=== PATIENT | female | born 1945 | race Caucasian/White ===

== ENCOUNTER 2018-12-02 09:57 | Observation (INO) | payer MEDICARE, BC ==
[2018-12-02] VITALS (22 sets, daily range): BP systolic 123–168; BP diastolic 55–79; PULSE 59–82; RESP 12–20; Ht 165.1 cm; Wt 61.2 kg
[~2018-12-02] VITALS: Ht 165.1 cm; Wt 61.2 kg
[~2018-12-02 09:57] MED LIST: CALC1TAB79 PO; CRES5 PO; ESOM40CA PO; HYDR200T39 PO; MULT-853 PO; OMEG1CAP35 PO; PREM3 PO; RANI150T5 PO; VIT1TABL46 PO; ZIAC5 PO
[2018-12-02] MEDS ORDERED: BUPIVACAINE 0.25%/EPI (SDV) 10 ML INJ ONE (12:05)
[2018-12-02] MEDS ORDERED: CA CHLORIDE (GM) 10% 10 ML INJ ONE (12:05)
[2018-12-02] MEDS ORDERED: THROMBIN 5000 UNIT (RECOTHROM) VIAL ONE (12:05)
[2018-12-02] MEDS ORDERED: POLYMYXIN/BACITRACIN 1L IRRIG ONE (12:05)
[2018-12-02] MEDS ORDERED: HEPARIN 1000 UNITS/ML 10 ML INJ ONE (12:05)
[2018-12-02] MEDS: CEFAZOLIN 1 GM/50 ML (PMX) 50 ML IVPB SCH ×2 (12:35→20:19)
[2018-12-02] MEDS ORDERED: MIDAZOLAM 1 MG/ML 2 ML INJ ONE (12:41)
[2018-12-02] MEDS ORDERED: BISACODYL 10 MG SUPP PR PRN (13:00)
[2018-12-02] MEDS ORDERED: AL HYDROX/MG HYDROX/SIMETH 30 ML CUP PO PRN (13:00)
[2018-12-02] MEDS ORDERED: ACETAMINOPHEN 325 MG TAB PO PRN (13:00)
[2018-12-02] MEDS ORDERED: NALOXONE (0.4 MG/ML) INJ IV PRN (13:00)
[2018-12-02] MEDS ORDERED: HYDROmorphONE 0.5 MG/0.5 ML SYG IV PRN (13:00)
[2018-12-02] MEDS ORDERED: HYDROCODONE/APAP (5/325) TAB PO PRN (13:00)
[2018-12-02] MEDS ORDERED: DIPHENHYDRAMINE 50 MG INJ IV PRN ×2 (13:00→15:00)
[2018-12-02] MEDS ORDERED: CYCLOBENZAPRINE 10 MG TAB PO PRN (13:00)
[2018-12-02] MEDS ORDERED: DIPHENHYDRAMINE 25 MG CAP PO PRN (13:00)
[2018-12-02] MEDS ORDERED: CEPASTAT LOZENGE MT PRN (13:00)
[2018-12-02] MEDS ORDERED: CEFAZOLIN 1 GM INJ ONE (14:08)
[2018-12-02] MEDS ORDERED: ROCURONIUM 50 MG INJ ONE (14:08)
[2018-12-02] MEDS ORDERED: NEOSTIGMINE 3 MG/3 ML SYRINGE ONE (14:08)
[2018-12-02] MEDS ORDERED: ETOMIDATE 20 MG INJ ONE (14:08)
[2018-12-02] MEDS ORDERED: GLYCOPYRROLATE 0.4 MG INJ ONE (14:08)
[2018-12-02] MEDS ORDERED: LIDOCAINE 2% (SDV) 5 ML INJ ONE (14:08)
[2018-12-02] MEDS ORDERED: ONDANSETRON 4 MG INJ ONE (14:10)
[2018-12-02] MEDS ORDERED: MEPERIDINE 25 MG INJ IV PRN (15:00)
[2018-12-02] MEDS ORDERED: hydrALAzine 20 MG INJ IV PRN ×2 (15:00→19:30)
[2018-12-02] MEDS ORDERED: METOCLOPRAMIDE 10 MG INJ IV PRN (15:00)
[2018-12-02] MEDS ORDERED: LABETALOL HCL 20MG INJ IV PRN (15:00)
[2018-12-02] MEDS ORDERED: HYDROmorphONE 1 MG/5 ML IV SYRINGE IV PRN ×2 (15:00)
[2018-12-02] MEDS ORDERED: FENTAnyl 50 MCG/ML VIAL IV PRN (15:00)
[2018-12-02] MEDS ORDERED: ONDANSETRON 4 MG INJ IV PRN (15:00)
[2018-12-02] MEDS: D5W-0.45 NACL + KCL 20 MEQ 1,000 ML IV SCH (17:11)
[2018-12-02] MEDS: ONDANSETRON 4 MG INJ IV PRN (19:08)
[2018-12-02] MEDS: HYDROCODONE/APAP (5/325) TAB PO PRN (19:09)
[2018-12-02] MEDS: DOCUSATE SODIUM 100 MG CAP PO SCH (20:18)
[2018-12-02] MEDS: HYDROXYCHLOROQUINE 200 MG TAB PO SCH (20:18)
[2018-12-02] MEDS ORDERED: RANITIDINE 150 MG TAB PO SCH (21:00)
[2018-12-03 01:00] VITALS: BP 142/68; PULSE 76; RESP 18
[2018-12-03] MEDS: D5W-0.45 NACL + KCL 20 MEQ 1,000 ML IV SCH ×2 (02:30→08:25)
[2018-12-03] MEDS: CEFAZOLIN 1 GM/50 ML (PMX) 50 ML IVPB SCH (04:34)
[2018-12-03] MEDS: HYDROCODONE/APAP (5/325) TAB PO PRN (04:41)
[2018-12-03] MEDS ORDERED: PANTOPRAZOLE (EC) 40 MG TAB PO SCH (06:00)
[2018-12-03 07:29] VITALS: BP 148/65; PULSE 88; RESP 16
[2018-12-03] MEDS: ONDANSETRON 4 MG INJ IV PRN ×2 (08:26→13:32)
[2018-12-03] MEDS: HYDROXYCHLOROQUINE 200 MG TAB PO SCH (08:40)
[2018-12-03] MEDS: DOCUSATE SODIUM 100 MG CAP PO SCH (08:41)
[2018-12-03] MEDS ORDERED: VITAMIN B COMPLEX/VIT C CAP PO SCH (09:00)
[2018-12-03] MEDS ORDERED: NON-FORMULARY/PATIENT OWN MED (Esomeprazole Mag Trihydrate (Nexium) 40 MG) PO SCH (09:00)
[2018-12-03] MEDS ORDERED: CALCIUM/VITAMIN D (500/200) TAB PO SCH ×2 (09:00)
[2018-12-03] MEDS ORDERED: MULTIVITAMINS THERAPEUTIC TAB PO SCH (09:20)
[2018-12-03] MEDS ORDERED: MAGNESIUM SULFATE 2 GM/50 ML 50 ML IVPB ONE (11:00)
[2018-12-03 14:27] VITALS: BP 137/63; PULSE 83; RESP 17
[2018-12-04] MEDS ORDERED: MULTIVITAMINS THERAPEUTIC TAB PO SCH (09:00)
== END 2018-12-03 15:30 | disposition home or self-care (01) ==
LOC: INTOOBSV 09:57 → REC 09:57 → MS1 16:54
PROVIDERS: ADMIT Specialist; ATTEND Specialist
DX: M48.061 Spinal stenosis, lumbar region without neurogenic claudication (principal); M54.16 Radiculopathy, lumbar region; M06.9 Rheumatoid arthritis, unspecified; I10 Essential (primary) hypertension; E78.5 Hyperlipidemia, unspecified; K21.9 Gastro-esophageal reflux disease without esophagitis
CPT/HCPCS: 63047; 72020; 80048; 83735; 85025; 86999; 96361; 96365; 96376; 97116; 97162; 97530; G0378; J0360; J0690; J1644; J2250; J2405; J2710; J2765; J3010; J3475; J3480; 99217